=== PATIENT | male | born 1965 | race Caucasian/White ===

== ENCOUNTER 2024-12-21 10:48 | Emergency (ER) | payer BC ==
[~2024-12-21] VITALS: Ht 175.3 cm; Wt 63.8 kg
[2024-12-21] MEDS ORDERED: ketorolac trometh 15mg/ml vial 15 MG/ML ML IM ONE (11:25)
[2024-12-21] MEDS: ketorolac trometh 30MG/ML vial 30 MG/ML VIAL IM ONE (12:28)
[2024-12-21] MEDS ORDERED: METH-798 PO (12:29)
[2024-12-21] MEDS ORDERED: LIDO700A32 TOP (12:29)
[2024-12-21] MEDS ORDERED: PRED50TA PO (12:29)
[2024-12-21 12:45] VITALS: BP 136/78; PULSE 86; RESP 18; TEMP 98.4; O2SAT 98
== END 2024-12-21 12:46 | disposition home or self-care (01) ==
LOC: ER 10:49
DX: M54.59 Other low back pain (principal)
CPT/HCPCS: 72100; 96372; 99283; J1885